=== PATIENT | female | born 1975 | race Caucasian/White ===

== ENCOUNTER 2023-11-28 09:21 | Day surgery (SDC) | payer OTHER ==
[2023-11-28] MEDS ORDERED: fentaNYL citrate 0.05 MG/ML VIAL ONE ×2 (11:21→12:13)
[2023-11-28] MEDS ORDERED: PROPOFOL 200 MG/20 ML VIAL IV ONE (11:22)
[2023-11-28] MEDS ORDERED: ROCURONIUM 50 MG/5 ML VIAL IV ONE (11:25)
[2023-11-28] MEDS ORDERED: SUCCINYLCHOLINE CHLORIDE 200 MG/10 ML VIAL IVP ONE (11:25)
[2023-11-28] MEDS ORDERED: DEXAMETHASONE 4 MG/ML VIAL ONE ×2 (11:28→12:00)
[2023-11-28] MEDS ORDERED: ONDANSETRON 4 MG/2 ML VIAL ONE ×2 (11:28→12:00)
[2023-11-28] MEDS ORDERED: LIDOCAINE 2% 100 MG/5 ML SYR IVP ONE (11:28)
[2023-11-28] MEDS ORDERED: METOCLOPRAMIDE 10 MG/2 ML INJ VIAL ONE (11:28)
[2023-11-28] MEDS ORDERED: SEVOFLURANE 250 ML BTL INH ONE (12:00)
[2023-11-28] MEDS ORDERED: HYDROmorphone 1 MG/ML AMP IVP PRN (12:45)
[2023-11-28] MEDS ORDERED: MEPERIDINE 25 MG/ML SYR IVP PRN (12:45)
[2023-11-28] MEDS ORDERED: ONDANSETRON 4 MG/2 ML VIAL IVP PRN (12:45)
== END 2023-11-28 14:15 | disposition home or self-care (01) ==
LOC: MDS 09:21 → MMU 09:22 → MDS 14:15
PROVIDERS: ATTEND Obstetrics & Gynecology
DX: N92.0 Excessive and frequent menstruation with regular cycle (principal); I10 Essential (primary) hypertension; Z86.2 Personal history of diseases of the blood and blood-forming organs and certain disorders involving the immune mechanism; Z88.0 Allergy status to penicillin
CPT/HCPCS: 58563; J0330; J1100; J2001; J2405; J2704; J2765; J3010; J3490; J7030; 88305